=== PATIENT | male | born 1980 | race Caucasian/White ===

== ENCOUNTER 2017-01-14 13:13 | Emergency (ER) | payer SELFPAY ==
[~2017-01-14] VITALS: Ht 188 cm; Wt 106.0 kg
[2017-01-14 13:16] VITALS: BP 133/75; PULSE 98; RESP 16; TEMP 98.2; O2SAT 98
--- NOTE | 2017-01-14 13:37 | PD ---
HPI Chief Complaint: Respiratory Symptoms Time Seen by Provider: 13:27 Travel History International Travel<30 days: No Contact w/Intl Traveler<30days: No Traveled to known affect area: No History of Present Illness HPI The patient is a 36-year-old male who presents emergency department for left-sided chest mass and tenderness which is been present for approximately 6 weeks. The patient states he's had some jacket changer the rib cage just inferior to the left breast, over the inferior left chest wall, for the last 6 weeks which is tender to palpation and worse with inspiration. He denies any acute shortness of breath, however, does note he has pain with deep inspiration secondary to the chest wall tenderness. He denies any productive cough, does have a history of tobacco use. He denies any fevers, chills, sweats , or weight loss. He denies any known trauma to the affected area. He denies any associated nausea, vomiting, or abdominal pain. Symptoms are moderate, present for last 6 weeks, and there are no current alleviating factors. [facility] Past Medical History Medical History: Denies Significant Hx Past Surgical History Cholecystectomy: Yes Tonsillectomy: Yes Social History Alcohol Use: No Tobacco Use: Yes (1 ppd) Substance Use: No Allergies-Medications (Allergen,Severity, Reaction): Coded Allergies: No Known Allergies (Unverified , 01/14/17) Reported Meds & Prescriptions Reported Meds & Active Scripts Active No Active Prescriptions or Reported Medications Review of Systems Except as stated in HPI: all other systems reviewed are Neg General / Constitutional: No: Fever, Weight Loss Cardiovascular: Positive: Chest Pain or Discomfort Respiratory: Positive: Shortness of Breath (secondary to pain with deep inspiration), Pleuritic Pain Gastrointestinal: No: Nausea, Vomiting, Abdominal Pain Skin: No Rash Physical Exam Narrative GENERAL: Awake, alert, nontoxic-appearing 36-year-old male who appears his stated age and is in no acute respiratory distress. SKIN: Focused skin assessment warm/dry. HEAD: Atraumatic. Normocephalic. EYES: Pupils equal and round. No scleral icterus. No injection or drainage. ENT: No nasal bleeding or discharge. Mucous membranes pink and moist. NECK: Trachea midline. No JVD. CARDIOVASCULAR: Regular rate and rhythm. No murmur appreciated. Tenderness to palpation over the inferior left chest wall over the affected area, pain is reproducible with palpation.. RESPIRATORY: No accessory muscle use. Clear to auscultation. Breath sounds equal bilaterally. GASTROINTESTINAL: Abdomen soft, non-tender, nondistended. No significant hepatomegaly or splenomegaly noted. MUSCULOSKELETAL: No obvious deformities. No clubbing. No cyanosis. No edema. NEUROLOGICAL: Awake and alert. No obvious cranial nerve deficits. Motor grossly within normal limits. Normal speech. PSYCHIATRIC: Appropriate mood and affect; insight and judgment normal. Data Data Last Documented VS Vital Signs Date Time Temp Pulse Resp B/P Pulse Ox O2 Delivery O2 Flow Rate FiO2 01/14/17 13:16 98.2 98 16 133/75 98 Orders Chest, Pa & Lat (01/14/17 ) Ct Thorax/ Chest Wo Iv [place]ras (01/14/17 ) MDM Medical Decision Making Medical Screen Exam Complete: Yes Emergency Medical Condition: Yes Medical Record Reviewed: Yes Interpretation(s) Last Impressions Chest X-Ray 01/14/17 0000 Signed Impressions: Service Date/Time: Saturday, January 14, 2017 13:36 - CONCLUSION: No acute cardiopulmonary process. Alexys Chang MD Chest CT 01/14/17 0000 Signed Impressions: Service Date/Time: Saturday, January 14, 2017 14:29 - CONCLUSION: 1. Abnormal thickening in the lower left anterior chest wall corresponding to the area proximal attachment of the rectus abdominis muscle to the inferior costal margin of the left chest. Findings may or present a focal myositis. 2. Otherwise, lungs are clear.. Alexys Chang MD Differential Diagnosis Differential diagnosis includes costochondritis, calcified rib cage, lipoma, splenomegaly, lymphoma, chest wall mass, sarcoma, osteosarcoma. Narrative Course A 2 view chest x-ray was obtained. Chest x-ray was unremarkable, therefore, CT of the thorax was ordered to evaluate possible soft tissue mass. CT of the thorax reveals focal induration of the rectus abdominis muscle or attached is to the area for left thorax, could be a local myositis. Most likely this is related to inflammatory muscle changes in the affected area, the patient will be placed on anti-inflammatories, will be provided a copy of his x-ray results and CT results, is advised to follow-up with a primary physician. Return if symptoms worsen or progress. Diagnosis Primary Impression: Focal myositis Patient Instructions: General Instructions Additional Instructions: Please provide a patient a copy of his CT results and lab results at discharge. Anti-inflammatories as directed. Follow-up with your primary physician if symptoms worsen or progress. Med/Other Pt SpecificInfo: Prescription(s) given Scripts Ibuprofen 600 Mg [id number] Mg PO Q6H PRN (Pain/Inflammation) #20 TAB Ref 0 Prov:Bonifacio Mathew MD 01/14/17 Disposition: 01 DISCHARGE HOME Condition: Stable Bonifacio Mathew MD Jan 14, 2017 13:37
--- NOTE | 2017-01-14 14:05 | RADRPT ---
EXAM DATE/TIME: 01/14/2017 13:36 [facility] COMPARISON: No previous studies available for comparison. INDICATIONS : Painful lump left lower chest MEDICAL HISTORY : None. SURGICAL HISTORY : None. ENCOUNTER: Initial ACUITY: 1 month PAIN SCORE: 7/10 LOCATION: Left lower chest FINDINGS: PA and lateral views of the chest demonstrate the lungs to be symmetrically aerated without evidence of mass, infiltrate or effusion. The cardiomediastinal contours are unremarkable. Osseous structure s are intact. CONCLUSION: No acute cardiopulmonary process. Alexys Chang MD on January 14, 2017 at 14:03 Board Certified Radiologist. This report was verified electronically.
--- NOTE | 2017-01-14 15:05 | RADRPT ---
EXAM DATE/TIME: 01/14/2017 14:29 [facility] COMPARISON: CHEST PA & LAT, January 14, 2017, 13:36. INDICATIONS : Left anterior, lower chest lump for one month. RADIATION DOSE: 21.51 CTDIvol (mGy) MEDICAL HISTORY : None SURGICAL HISTORY : Tonsillectomy. Cholecystectomy. ENCOUNTER: Initial ACUITY: 1 month PAIN SCALE: 5/10 LOCATION: Left chest TECHNIQUE: Volumetric scanning of the chest was performed. Using automated exposure control and adjustment of t he mA and/or kV according to patient size, radiation dose was kept as low as reasonably achievable to obtain optimal diagnostic quality images. DICOM format image data is available electronically for r eview and comparison. FINDINGS: LUNGS: There is no consolidation or pneumothorax. No concerning pulmonary nodule is visualized. PLEURAE: There is no pleural thickening or pleural effusion. MEDIASTINUM: The heart and great vessels demonstrate no acute abnormality. There is no mediastinal or hilar lymph adenopathy. AXILLAE: Within normal limits. No lymphadenopathy. MUSCULOSKELETAL: Haziness and thickening of the proximal attachment of the left rectus abdominis muscle to the inferio r aspect of the left hemithorax. This may represent a focal myositis. MISCELLANEOUS: The visualized upper abdominal organs demonstrate no acute abnormality. Patient is status post cholec ystectomy. CONCLUSION: 1. Abnormal thickening in the lower left anterior chest wall corresponding to the area proximal attac hment of the rectus abdominis muscle to the inferior costal margin of the left chest. Findings may or present a focal myositis. 2. Otherwise, lungs are clear.. Alexys Chang MD on January 14, 2017 at 14:59 Board Certified Radiologist. This report was verified electronically.
[2017-01-14] MEDS ORDERED: IBUP-232 PO (15:24)
== END 2017-01-14 17:24 | disposition home or self-care (01) ==
LOC: PHED 13:13
DX: M60.88 Other myositis, other site (principal); R07.89 Other chest pain; R07.1 Chest pain on breathing; F17.200 Nicotine dependence, unspecified, uncomplicated
CPT/HCPCS: 71020; 71250

== ENCOUNTER 2017-05-31 09:03 | Emergency (ER) | payer SELFPAY ==
[~2017-05-31] VITALS: Ht 190.5 cm; Wt 115.5 kg
[~2017-05-31 09:03] MED LIST: IBUP-232 PO
[2017-05-31 09:08] VITALS: BP 137/78; PULSE 99; RESP 16; TEMP 97.5; O2SAT 98
[2017-05-31] MEDS ORDERED: CLIN300C5 PO (09:38)
--- NOTE | 2017-05-31 09:39 | PD ---
HPI Chief Complaint: Skin Problem Time Seen by Provider: 09:12 Travel History International Travel<30 days: No Contact w/Intl Traveler<30days: No Traveled to known affect area: No History of Present Illness HPI 37 -year-old male here for evaluation of drainage from a previous abscess site to left anterior chest wall. He reports the area was incised and drained by [facility] in [place] 2 months ago. He noticed drainage from the site several days ago. He reports the drainage is clear yellowish. He denies fever, chills , chest pain, cough, shortness of breath, night sweats, weight loss. Symptom severity is mild with no alleviating factors. PFSH Past Medical History Medical History: Denies Significant Hx Cardiovascular Problems: Yes (htn but does not take meds) Past Surgical History Cholecystectomy: Yes Tonsillectomy: Yes Social History Alcohol Use: No Tobacco Use: Yes (1 ppd) Substance Use: No Allergies-Medications (Allergen,Severity, Reaction): Coded Allergies: No Known Allergies (Unverified Adverse Reaction, Unknown, 05/31/17) Reported Meds & Prescriptions Reported Meds & Active Scripts Active Clindamycin (Clindamycin HCl) 300 Mg Cap 300 Mg PO Q6H 10 Days Review of Systems Except as stated in HPI: all other systems reviewed are Neg General / Constitutional: No: Fever Physical Exam Narrative GENERAL: Well-nourished, well-developed patient. SKIN: Focused skin assessment warm/dry. Tender and Indurated area to the left anterior/inferior chest wall with a small 0.5 cm linear well-healed scar in the center. No overlying erythema, warmth, fluctuance. HEAD: Normocephalic. EYES: No scleral icterus. No injection or drainage. NECK: Supple, trachea midline. No JVD or lymphadenopathy. CARDIOVASCULAR: Regular rate and rhythm without murmurs, gallops, or rubs. RESPIRATORY: Breath sounds equal bilaterally. No accessory muscle use. GASTROINTESTINAL: Abdomen soft, non-tender, nondistended. Data Data Last Documented VS Vital Signs Date Time Temp Pulse Resp B/P (MAP) Pulse Ox O2 Delivery O2 Flow Rate FiO2 05/31/17 09:08 97.5 99 16 137/78 (97) 98 Orders Orders Ed Discharge Order (05/31/17 09:50) MDM Medical Decision Making Medical Screen Exam Complete: Yes Emergency Medical Condition: Yes Differential Diagnosis ABSCESS, CELLULITIS, INFECTIOUS MYOSITIS Narrative Course 37 -year-old male here for evaluation of drainage from a previous abscess site to left anterior chest wall. He reports the area was incised and drained by [facility] in [place] 2 months ago. He noticed drainage from the site several days ago. He reports the drainage is clear yellowish. He denies fever, chills , chest pain, shortness of breath, night sweats, weight loss. He was seen here on 01/2017 and diagnosed with myositis of the. According to the patient he has had a small mass to the left inferior/anterior chest wall for over a year. During his visit on 01/[address] scan which showed myositis. The patient is nontoxic-appearing. He is afebrile. He does not endorse worsening pain or increasing size of the chest mass. His lung sounds are clear bilaterally. On exam he has mild induration with central scab and a small amount of clear yellow drainage to the left inferior/anterior chest wall. No mass appreciated. No overlying cellulitis. I think it reasonable to put him on oral antibiotics and see if symptoms improve. Have him follow up with outpatient [place] [facility]. If symptoms worsen he is to return to emergency department Diagnosis Primary Impression: Abscess Referrals: [facility] Additional Instructions: Take [id number] ibuprofen 800 mg every 6-8 hours as needed for pain. Take the oral antibiotics as prescribed. Make an appointment for follow-up with the [place] [facility]. If symptoms worsen return to the emergency department Scripts Clindamycin (Clindamycin) 300 Mg Cap 300 MG PO Q6H for Infection for 10 Days, #40 CAP 0 Refills Prov: Hailey Martell 05/31/17 Disposition: 01 DISCHARGE HOME Condition: Stable Hailey Martell May 31, 2017 09:39
== END 2017-05-31 09:50 | disposition home or self-care (01) ==
LOC: PHEFT 09:03
DX: L02.213 Cutaneous abscess of chest wall (principal)
CPT/HCPCS: 99283